=== PATIENT | male | born 1945 | race Caucasian/White ===

== ENCOUNTER → 2024-01-09 07:31 | Outpatient (REF) | payer MEDICARE, OTHER, SELFPAY | LOC: RCS 07:31 | PROVIDERS: ATTENDING PHYSICIAN Internal Medicine | DX: R06.09 Other forms of dyspnea (principal) | CPT/HCPCS: 78452; 93017; A9500 ==

== ENCOUNTER → 2024-01-16 06:44 | Outpatient (REF) | payer MEDICARE, OTHER, SELFPAY | LOC: PAVMRI 06:44 | PROVIDERS: ATTENDING PHYSICIAN Internal Medicine | DX: M51.360 Other intervertebral disc degeneration, lumbar region with discogenic back pain only (principal) | CPT/HCPCS: 72148 ==

== ENCOUNTER → 2024-09-17 07:58 | Outpatient (REF) | payer MEDICARE, OTHER, SELFPAY ==
[2024-09-17 09:19] LABS: Hematocrit 38.1 % (39.0-52.0); Hemoglobin 13.0 g/dL (13.0-18.0); Mean Corp Hgb Conc. 34.1 g/dL (33.0-37.0); Mean Corpuscular Volume 89.9 fL (80.0-94.0); Nucleated Red Blood Cells % 0 % (-); Platelet Count 248 10^3/uL (130-400); Red Cell Dist. Width 12.9 % (11.5-14.5)
[2024-09-17 09:34] LABS: Urine Character Clear (Clear)
[2024-09-17 11:30] LABS: ALT (SGPT) 18 U/L (0-50); AST (SGOT) 24 U/L (17-59); Albumin 4.6 g/dl (3.5-5.0); Alkaline Phosphatase 52 U/L (38-126); Blood Urea Nitrogen 24 mg/dl (9-20); Calcium 9.5 mg/dl (8.4-10.2); Carbon Dioxide 26 mmol/L (22-30); Chloride 106 mmol/L (98-107); Glucose 86 mg/dl (70-99); HDL Cholesterol 63 mg/dl; LDL Cholesterol, Calculated 54 mg/dl; Potassium 4.8 mmol/L (3.5-5.1); Sodium 139 mmol/L (135-145); Total Protein 7.8 g/dl (6.3-8.2); Very Low Density Lipoprotein 17 mg/dl (0-30); eGFR > 60.00
[2024-09-17 11:53] LABS: PSA, Total - Screen 2.12 ng/ml (0.0-4.0); TSH 1.36 uIU/ml (0.47-4.68)
== END ==
LOC: REG 07:58
PROVIDERS: ATTENDING PHYSICIAN Internal Medicine
DX: I10 Essential (primary) hypertension (principal); E78.2 Mixed hyperlipidemia; N40.0 Benign prostatic hyperplasia without lower urinary tract symptoms; I70.0 Atherosclerosis of aorta; Z12.5 Encounter for screening for malignant neoplasm of prostate
CPT/HCPCS: 36415; 80053; 80061; 81003; 84443; 85025; G0103